=== PATIENT | female | born 1975 | race African-American/Black ===

== ENCOUNTER 2017-02-28 09:59 | Emergency (ER) | payer MEDICAID ==
[~2017-02-28] VITALS: Ht 149.9 cm; Wt 73.0 kg
[2017-02-28] MEDS ORDERED: KETOROLAC 30MG/ML VIAL IM STA (10:56)
[2017-02-28] MEDS ORDERED: ONDANSETRON 4MG ODT PO STA (10:56)
[2017-02-28 11:12] LABS: CLARITY URINE CLEAR (CLEAR); COLOR URINE YELLOW (YELLOW); GLUCOSE URINE NEGATIVE (NEGATIVE); KETONES URINE NEGATIVE (NEGATIVE); LEUKOCYTE ESTERASE URINE NEGATIVE (NEGATIVE); NITRITE URINE NEGATIVE (NEGATIVE); OCCULT BLOOD URINE TRACE (NEGATIVE); PROTEIN URINE NEGATIVE (NEGATIVE); SPECIFIC GRAVITY URINE 1.006 (1.005-1.030); UROBILINOGEN URINE 0.2 E.U./dL (0.2-1.0)
[2017-02-28 11:33] LABS: SQUAMOUS EPITHELIAL CELL URINE FEW /lpf (RARE/1+)
[2017-02-28 11:34] LABS: BACTERIA URINE TRACE; RBC URINE NONE SEEN /hpf (0-2); WBC URINE 0-2 /hpf (0-2)
[2017-02-28 12:21] LABS: BASOPHILS % 0.3 % (0.0-2.0); EOSINOPHILS % 0.6 % (0.0-5.0); HEMATOCRIT. 29.8 % (36.0-48.0); HEMOGLOBIN. 9.7 g/dL (12.0-16.0); LYMPHOCYTES % 23.5 % (20.0-50.0); MEAN CORPUSCULAR HEMOGLOBIN 22.5 pg (28.0-32.0); MEAN CORPUSCULAR HGB CONC 32.4 g/dL (31.0-37.0); MEAN CORPUSCULAR VOLUME 69.4 fL (81.0-99.0); MEAN PLATELET VOLUME 8.2 fl (7.4-10.4); MONOCYTES % 10.3 % (2.0-8.0); NEUTROPHILS % 65.3 % (40.0-76.0); PLATELET 266 x1000/uL (130-400); RED CELL DISTRIBUTION WIDTH 19.3 % (11.6-14.6); WHITE BLOOD COUNT 4.7 x1000/uL (4.5-11.0)
[2017-02-28 12:22] LABS: CHLORIDE 107 mEq/L (98-107)
[2017-02-28 12:24] LABS: ADD RBC MORPHOLOGY YES; DIFFERENTIAL COMMENT 1
[2017-02-28 12:30] LABS: ALANINE AMINOTRANSFERASE 23 IU/L (13-61); ALBUMIN 3.4 g/dL (3.4-5.0); ANION GAP 11; CALCIUM 8.7 mg/dL (8.5-10.1); CARBON DIOXIDE 27 mEq/L (21-32); HCG SCREEN NEGATIVE; INDEX HEMOLYSI 1 (1-3); INDEX ICTERIC 1 (1-4); INDEX LIPEMIC 1 (1-3); LIPASE 327 IU/L (73-393); UREA NITROGEN BLOOD 5 mg/dL (7-21)
[2017-02-28] MEDS ORDERED: HYDROCODONE/ACETAMINOPHEN 5/325MG TABLET PO ONE (12:30)
[2017-02-28 12:33] LABS: eGFR > 60 mL/min (>60)
[2017-02-28 12:52] LABS: ANISOCYTOSIS 1+; PLATELET ESTIMATE NORMAL
[2017-02-28 14:00] VITALS: BP 128/72
== END 2017-02-28 14:43 | disposition home or self-care (01) ==
LOC: ER 10:00
DX: K59.00 Constipation, unspecified (principal); R51 Headache; D50.9 Iron deficiency anemia, unspecified; F12.10 Cannabis abuse, uncomplicated
CPT/HCPCS: 36415; 74000; 76705; 80053; 81001; 83690; 84703; 85025; 96372; 99285; J1885; Q0162

== ENCOUNTER 2017-09-11 19:13 | Emergency (ER) | payer MEDICAID ==
[~2017-09-11] VITALS: Ht 165.1 cm; Wt 55.0 kg
[2017-09-11] MEDS ORDERED: KETOROLAC 30MG/ML VIAL IV STA (20:06)
[2017-09-11] MEDS ORDERED: ONDANSETRON HCL 4MG/2ML VIAL IV STA (20:06)
[2017-09-11] MEDS ORDERED: SODIUM CHLORIDE 0.9% 1,000 ML IV ONE (20:06)
[2017-09-11 20:35] LABS: INR 1.1
[2017-09-11 20:37] LABS: BASOPHILS % 0.4 % (0.0-2.0); EOSINOPHILS % 0.6 % (0.0-5.0); HEMATOCRIT. 31.6 % (36.0-48.0); HEMOGLOBIN. 10.4 g/dL (12.0-16.0); LYMPHOCYTES % 14.3 % (20.0-50.0); MEAN CORPUSCULAR HEMOGLOBIN 22.6 pg (28.0-32.0); MEAN CORPUSCULAR VOLUME 68.7 fL (81.0-99.0); MEAN PLATELET VOLUME 9.4 fl (7.4-10.4); MONOCYTES % 5.6 % (2.0-8.0); NEUTROPHILS % 79.1 % (40.0-76.0); PLATELET 227 x1000/uL (130-400); RED CELL DISTRIBUTION WIDTH 18.6 % (11.6-14.6)
[2017-09-11 20:40] LABS: CARBON DIOXIDE 27 mEq/L (21-32); CHLORIDE 103 mEq/L (98-107)
[2017-09-11 20:59] LABS: PLATELET ESTIMATE NORMAL
[2017-09-11] MEDS ORDERED: POTASSIUM CHLORIDE 20MEQ TABLET SR PO ONE (21:15)
[2017-09-11 21:37] VITALS: BP 127/76
== END 2017-09-11 23:40 | disposition home or self-care (01) ==
LOC: ER 19:30
DX: E87.6 Hypokalemia (principal); R51 Headache; R05 Cough; F17.210 Nicotine dependence, cigarettes, uncomplicated; Z71.6 Tobacco abuse counseling
CPT/HCPCS: 36415; 70450; 71010; 80053; 81025; 83605; 85025; 85610; 96361; 96374; 96375; 99285; 99406; J1885; J2405; J7030; Z7610